=== PATIENT | female | born 1980 | race Caucasian/White ===

== ENCOUNTER 2019-07-23 01:08 | Emergency (ER) | payer OTHER ==
[2019-07-23 01:35] VITALS: BP 124/76; PULSE 75; TEMP 98.5
--- NOTE | 2019-07-23 01:58 | PDOC ---
History of Present Illness - General Chief Complaint: Cold Symptoms Stated Complaint: FLU LIKE SYMPTOMS Time Seen by Provider: 07/23/19 01:58 History Source: Patient Exam Limitations: No Limitations - History of Present Illness Initial Comments: 39-year-old female with past medical history of cardiac murmur, cardiac surgery , asthma at 13 years old presented to the emergency department for body aches, headache, sore throat, productive clear cough, left ear pain, for the last three days and chest pain today. Patient reported that she has not used an albuterol pump or inhaler in a long time, shes never been into baited or hospitalized for her asthma. She reported that her chest tightness today feels similar to when she has an asthma exacerbation. She reported that she feels chest pain when walking and exerting herself. She reported she is concerned she could have the flu. ROS General: admitted to subjective fever, chills, generalized weakness. HEENT: admitted sore throat, ear pain. denied rhinorrhea. Cardiovascular: admitted to chest pain. denied palpitations, syncope, diaphoresis. Respiratory: admitted to shortness of breath, cough, sputum production. denied hemoptysis. Gastrointestinal: denied abdominal pain, nausea, vomiting, diarrhea, constipation, blood in stool. Genitourinary: denied dysuria, increased urinary frequency, hematuria, urinary incontinence, flank pain. Back: denied back pain. Musculoskeletal: denied joint pain, muscle pain, joint swelling. Neurological: admitted to headache. denied dizziness, numbness, tingling, weakness. Integumentary: denied rash, laceration, abrasion. Hematologic/Lymphatic: denied bruising or bleeding. PE Constitutional: Well-nourished, Well-developed, appearing stated age. HEENT: head is normocephalic, atraumatic. EOMI. PERRLA. right TM no erythema or bulging. Left TM bulging. bilateral tonsillar enlargement, no exudates. no posterior pharyngeal erythema. no tonsillar pillar swelling. Neck: supple. Full ROM. Cardiovascular: regular heart rhythm. no murmurs. no pericardial friction rub. Respiratory: clear to auscultation bilaterally. no crackles, rhonchi or wheezing. no stridor. Gastrointestinal: soft, nontender. normal bowel sounds. no rebound, guarding, masses. Extremities: peripheral pulses intact. no lower extremity edema. Neurological: CN 2-12 grossly intact. moves all four extremities. Psych: awake, alert, oriented x3. follows commands. answers questions appropriately. Past History - Past Medical History Allergies/Adverse Reactions: Allergies Allergy/AdvReac Type Severity Reaction Status Date / Time No Known Allergies Allergy Verified 07/23/19 01:34 Home Medications: Ambulatory Orders Acetaminophen [Tylenol] 650 mg PO PRN PRN 07/23/19 Albuterol 0.083% Nebulizer Rosi [Ventolin 0.083% Nebulizer Soln -] 1 neb NEB Q4H PRN #30 vial 07/23/19 Nebulizer Accessories [Adult Aerosol Mask] 1 each MC QID PRN #1 each 07/23/19 Nebulizer [Compact Compressor Nebulizer] 1 each MC QID PRN #1 each 07/23/19 COPD: No - Surgical History Cardiac Surgery: Yes (as a child) - Immunization History Immunization Up to Date: Yes - Psycho Social/Smoking Cessation Hx Smoking History: Never smoked Have you smoked in the past 12 months: No Information on smoking cessation initiated: No Hx Alcohol Use: No Drug/Substance Use Hx: No Substance Use Type: None *Physical Exam - Vital Signs Last Vital Signs Temp Pulse Resp BP Pulse Ox 98.5 F 75 20 124/76 100 07/23/19 01:34 07/23/19 01:34 07/23/19 01:34 07/23/19 01:34 07/23/19 01:34 ED Treatment Course - LABORATORY CBC & Chemistry Diagram: 07/23/19 02:39 07/23/19 02:39 Medical Decision Making - Medical Decision Making 39 year old female with above PMH presented to ED for productive clear cough, body aches, headache, sore throat, left ear pain, chest pain x3 days. Initial Vital Signs Temp Pulse Resp BP Pulse Ox 98.5 F 75 20 124/76 100 07/23/19 01:34 07/23/19 01:34 07/23/19 01:34 07/23/19 01:34 07/23/19 01:34 Afebrile. No tachycardia. No tachypnea. No hypotension. No hypoxia on room air. Labs ordered: influenza, rapid strep, CBC, CMP, troponin Imaging ordered: none Medications ordered: tylenol, duoneb EKG performed at 0259: rate 88, regular rhythm, normal axis, normal intervals, QTc 474, flipped T V3, V4, V5 other [place] no acute ST changes. -No prior to compare 07/23/19 02:44 Pt reported improvement of chest tightness with nebulizer treatment. 07/23/19 03:14 Laboratory Last Values WBC 6.0 K/mm3 (4.0-10.0) 07/23/19 02:39 RBC 4.21 M/mm3 (3.60-5.2) 07/23/19 02:39 Hgb 12.8 GM/dL (10.7-15.3) 07/23/19 02:39 Hct 38.1 % (32.4-45.2) 07/23/19 02:39 MCV 90.5 fl (80-96) 07/23/19 02:39 MCH 30.5 pg (25.7-33.7) 07/23/19 02:39 MCHC 33.6 g/dl (32.0-36.0) 07/23/19 02:39 RDW 13.2 % (11.6-15.6) 07/23/19 02:39 Plt Count 261 K/MM3 (134-434) 07/23/19 02:39 MPV 10.3 fl (7.5-11.1) 07/23/19 02:39 Absolute Neuts (auto) 2.8 K/mm3 (1.5-8.0) 07/23/19 02:39 Neutrophils % 47.0 % (42.8-82.8) 07/23/19 02:39 Lymphocytes % 36.3 % (8-40) 07/23/19 02:39 Monocytes % 14.4 % (3.8-10.2) H 07/23/19 02:39 Eosinophils % 1.5 % (0-4.5) 07/23/19 02:39 Basophils % 0.8 % (0-2.0) 07/23/19 02:39 Nucleated RBC % 0 % (0-0) 07/23/19 02:39 Influenza A (Rapid) Negative (Negative) 07/23/19 02:11 Influenza B (Rapid) Positive (Negative) A 07/23/19 02:11 Group A Strep Rapid Negative (Negative) 07/23/19 02:36 No leuckocytosis. No anemia. Positive for Influenza B. -Sx present for >48 hours, pt is young and healthy, will not give Tamiflu -L TM bulging likely viral, will not give Antibiotics GAS rapid testing negative 07/23/19 03:57 CMP Sodium 138 mmol/L (136-145) 07/23/19 02:39 Potassium 3.8 mmol/L (3.5-5.1) 07/23/19 02:39 Chloride 106 mmol/L (98-107) 07/23/19 02:39 Carbon Dioxide 21 mmol/L (21-32) 07/23/19 02:39 Anion Gap 10 MMOL/L (8-16) 07/23/19 02:39 BUN 13.8 mg/dL (7-18) 07/23/19 02:39 Creatinine 0.8 mg/dL (0.55-1.3) 07/23/19 02:39 Est GFR (CKD-EPI)AfAm 108.39 07/23/19 02:39 Est GFR (CKD-EPI)NonAf 93.52 07/23/19 02:39 Random Glucose 147 mg/dL (74-106) H 07/23/19 02:39 Calcium 8.2 mg/dL (8.5-10.1) L 07/23/19 02:39 Total Bilirubin 0.2 mg/dL (0.2-1) 07/23/19 02:39 AST 66 U/L (15-37) H 07/23/19 02:39 ALT 93 U/L (13-61) H 07/23/19 02:39 Alkaline Phosphatase 101 U/L (45-117) 07/23/19 02:39 Troponin I < 0.02 ng/ml (0.00-0.05) 07/23/19 02:39 Total Protein 7.7 g/dl (6.4-8.2) 07/23/19 02:39 Albumin 3.5 g/dl (3.4-5.0) 07/23/19 02:39 Mild transaminitis. Pt made aware and advised to F/U with GI. Abdomen soft and nontender. CXR my and Dr. Marroquin's view: sharp costophrenic angles. no infiltrate. no cardiomegaly. -Pending official report Pt reported improvement of symptoms. Will discharge with prescription for albuterol nebulizer solution, nebulizer, mask; pt given supportive treatment education. 07/23/19 18:51 Follow up: Official CXR report: Name: [facility] DEPARTMENT OF RADIOLOGY Phys : Fara Marroquin MD : [id number] Age: 39 Sex: F [facility] Acct : [id number] Loc: [address] Exam Date: 07/23/19 Status: [place] [id number] Unit Number: [id number] EXAM#: TYPE/EXAM: RESULT: [id number] RAD/CHEST PA LAT Chest: Cough. There are no prior studies for comparison. There are clear lungs, normal mediastinum and sharp angles. The soft tissues are excessive. The bones are intact. Impression: Excessive soft tissues. No acute chest pathology. Reported By: Jay Priec MD 07/23/19 0730 Discharge - Discharge Information Problems reviewed: Yes Clinical Impression/Diagnosis: Influenza B, Elevated liver enzymes Condition: Improved Disposition: HOME - Admission No - Additional Discharge Information Prescriptions: Albuterol 0.083% Nebulizer Rosi [Ventolin 0.083% Nebulizer Soln -] 1 neb NEB Q4H PRN #30 vial PRN Reason: Asthma Nebulizer [Compact Compressor Nebulizer] 1 each MC QID PRN #1 each PRN Reason: Asthma Nebulizer Accessories [Adult Aerosol Mask] 1 each MC QID PRN #1 each PRN Reason: Asthma - Follow up/Referral Referrals: Mohan Thomas MD [Staff Physician] - Rao Gilbert DO [Staff Physician] - - Patient Discharge Instructions Patient Printed Discharge Instructions: DI for Influenza -- Adult, Liver Function Tests Additional Instructions: Your liver enzymes were slightly elevated, please follow up on this finding with your primary care doctor and have the lab work repeated within 7 days. If the lab values are still high then please follow up with a superintendent drivers, I have provided you with a couple of referrals. Take Tylenol over the counter throughout the day for fever/headache. Take as advised on label. Take Ibuprofen over the counter throughout the day for body aches. Take as advised on label. I have sent a prescription to your pharmacy for albuterol nebulizer solution and a nebulizer machine. Use every 4-6 hours as needed for chest tightness/ shortness of breath. Follow up with your primary care doctor within 3 days regarding your Emergency Room visit. Your care is not complete until you follow up. Drink lots of pedialyte/gatorade to stay hydrated. Get lots of sleep over the next few days. Return to the Emergency Department for increasing pain, chest pain, shortness of breath, vomiting, fever>103F despite Tylenol use, fever>5 days, weakness, numbness, tingling or any other new, worsening or concerning symptoms. - Post Discharge Activity Work/Back to School Note: Back to Work
--- NOTE | 2019-07-23 02:01 | PDOC ---
Attending Attestation - Resident Resident Name: Jeanne Bliss - ED Attending Attestation I have performed the following: I have examined & evaluated the patient, The case was reviewed & discussed with the resident, I agree w/resident's findings & plan - HPI HPI: 07/23/19 03:03 Pt comes with cough aches, sore throat and left ear pain. She has chest pain that is exertional. She has no known ill contacts. - Physicial Exam PE: 07/23/19 03:05 Heart lungs clear Abd soft NT ND No flank pain Ext no edema HEENT: left ear TM minimally bulging throat erythematous - Medical Decision Making 07/23/19 02:57 Strep negative 07/23/19 03:06 Flu B Positive Pt will get CXR as she has chest pain EKG shows lateral nonspecific T changes 07/23/19 04:03 Stable for discharge 07/23/19 04:05 Pt given a copy of her blood tests and she was asked to follow with her PMD and with GI 07/23/19 04:13 Stable for discharge at this time
[2019-07-23] MEDS ORDERED: ACETAMINOPHEN 325 MG TABLET (FP) PO ONE (02:30)
[2019-07-23] MEDS ORDERED: ALBUTEROL SO4 2.5/IPRATROPIUM 0.5 INH SOL 3 ML VIAL.NEB. NEB ONE ×2 (02:30→02:32)
[2019-07-23] MEDS ORDERED: ACETAMINOPHEN 325 MG TABLET (FP) ONE (02:32)
[2019-07-23 03:02] LABS: BASO % 0.8 % (0-2.0); EOS % 1.5 % (0-4.5); HEMATOCRIT 38.1 % (32.4-45.2); HEMOGLOBIN 12.8 GM/dL (10.7-15.3); LYMPH % 36.3 % (8-40); MCH 30.5 pg (25.7-33.7); MCHC 33.6 g/dl (32.0-36.0); MEAN CELL VOLUME 90.5 fl (80-96); MEAN PLT VOLUME 10.3 fl (7.5-11.1); MONO % 14.4 % (3.8-10.2); PLATELET COUNT 261 K/MM3 (134-434); RBC 4.21 M/mm3 (3.60-5.2); RDW 13.2 % (11.6-15.6)
[2019-07-23 03:53] LABS: ALBUMIN 3.5 g/dl (3.4-5.0); BILIRUBIN,TOTAL 0.2 mg/dL (0.2-1); BLOOD UREA NITROGEN 13.8 mg/dL (7-18); CALCIUM 8.2 mg/dL (8.5-10.1); CREATININE 0.8 mg/dL (0.55-1.3); POTASSIUM 3.8 mmol/L (3.5-5.1); TOT PROT 7.7 g/dl (6.4-8.2)
--- NOTE | 2019-07-23 17:53 | EKG ---
Test Reason : Blood Pressure : / mmHG Vent. Rate : 088 BPM Atrial Rate : 088 BPM P-R Int : 128 ms QRS Dur : 090 ms QT Int : 392 ms P-R-T Axes : 048 018 040 degrees QTc Int : 474 ms NORMAL SINUS RHYTHM POSSIBLE LEFT ATRIAL ENLARGEMENT LEFT VENTRICULAR HYPERTROPHY NONSPECIFIC T WAVE ABNORMALITY ABNORMAL ECG NO PREVIOUS ECGS AVAILABLE Confirmed by RAMIREZ PRATT MD ([id number]) on 07/23/2019 5:53:08 PM Referred By: Confirmed By:RAMIREZ PRATT MD
== END 2019-07-23 04:12 | disposition home or self-care (01) ==
LOC: JER 01:08
PROC: 3E0F7GC Introduction of Other Therapeutic Substance into Respiratory Tract, Via Natural or Artificial Opening (ICD-10-PCS; principal; 2019-07-23)
DX: J10.1 Influenza due to other identified influenza virus with other respiratory manifestations (principal); H93.8X2 Other specified disorders of left ear
CPT/HCPCS: 36415; 71046-TC-FY; 80053; 84484; 85025; 87070; 87804; 87880; 93005; 93010; 99283-25

== ENCOUNTER 2019-07-23 22:27 | Emergency (ER) | payer OTHER ==
[2019-07-23 22:45] VITALS: BMI 29.8
--- NOTE | 2019-07-23 23:56 | PDOC ---
History of Present Illness - General History Source: Patient Exam Limitations: No Limitations - History of Present Illness Initial Comments: 39-year-old female with past medical history of cardiac murmur, cardiac surgery as a child presented to the emergency department after being seen yesterday and been diagnosed with influenza B. She reported the pharmacy that she chose to have a prescription sent to was not open all day today so she was not able to access her prescriptions for her albuterol nebulizer solution, nebulizer and accessories. She reported she did not take any Motrin ibuprofen throughout the day. She reported she last took two pills of Tylenol two hours ago. She reported her primary compliant is her diffuse body aches, chest tightness and wheezing. She reported she has developed nausea bombing as well now. I saw the patietn yesterday in the Emergency Department and advised pt to take Motrin for her body aches, which she has not done. ROS General: admitted to body aches, fever, chills, generalized weakness. HEENT: denied sore throat, rhinorrhea, ear pain. Cardiovascular: admitted to chest pain, chest tightness. denied palpitations, syncope, diaphoresis. Respiratory: admitted to shortness of breath, cough. denied sputum production, hemoptysis. Gastrointestinal: admitted to nausea, vomiting. denied abdominal pain, diarrhea , constipation, blood in stool. Genitourinary: denied dysuria, increased urinary frequency, hematuria, urinary incontinence, flank pain. Back: denied back pain. Musculoskeletal: denied joint pain, muscle pain, joint swelling. Neurological: denied headache, dizziness, numbness, tingling, weakness. Integumentary: denied rash, laceration, abrasion. Hematologic/Lymphatic: denied bruising or bleeding. PE Constitutional: Well-nourished, Well-developed, appearing stated age. HEENT: head is normocephalic, atraumatic. EOMI. PERRLA. Left TM bulging. Right TM normal. Exudate on left tonsil. Bilateral tonsillar enlargement. Neck: supple. Full ROM. Cardiovascular: tachycardic. regular heart rhythm. no murmurs. no pericardial friction rub. Respiratory: clear to auscultation bilaterally. no stridor. speaking full sentences. Gastrointestinal: soft, nontender. normal bowel sounds. no rebound, guarding, masses. Extremities: peripheral pulses intact. no lower extremity edema. Neurological: CN 2-12 grossly intact. moves all four extremities. Psych: awake, alert, oriented x3. follows commands. answers questions appropriately. <IzaiahJeanne - Last Filed: 07/24/19 01:30> <Fara Marroquin - Last Filed: 07/24/19 01:54> - General Chief Complaint: Cold Symptoms Stated Complaint: FEVER Time Seen by Provider: 07/23/19 23:56 Past History - Surgical History Cardiac Surgery: Yes (as a child) - Immunization History Immunization Up to Date: Yes - Psycho Social/Smoking Cessation Hx Smoking History: Never smoked Have you smoked in the past 12 months: No Hx Alcohol Use: No Drug/Substance Use Hx: No Substance Use Type: None <Jeanne Bliss - Last Filed: 07/24/19 01:30> <Fara Marroquin - Last Filed: 07/24/19 01:54> - Past Medical History Allergies/Adverse Reactions: Allergies Allergy/AdvReac Type Severity Reaction Status Date / Time No Known Allergies Allergy Verified 07/23/19 22:45 Home Medications: Ambulatory Orders Acetaminophen [Tylenol] 650 mg PO PRN PRN 07/23/19 Albuterol 0.083% Nebulizer Rosi [Ventolin 0.083% Nebulizer Soln -] [address] [facility] NEB Q4H PRN #30 vial 07/23/19 Nebulizer Accessories [Adult Aerosol Mask] 1 each QID PRN #1 each 07/23/19 Nebulizer [Compact Compressor Nebulizer] 1 each QID PRN #1 each 07/23/19 Albuterol 0.083% Nebulizer Rosi [Ventolin 0.083% Nebulizer Soln -] 1 neb NEB Q4H PRN #30 vial 07/24/19 Albuterol 0.083% Nebulizer Rosi [Ventolin 0.083% Nebulizer Soln -] 1 neb NEB Q4H PRN #30 vial 07/24/19 Nebulizer Accessories [Adult Aerosol Mask] 1 each QID PRN #1 each 07/24/19 Nebulizer Accessories [Adult Aerosol Mask] 1 each QID PRN #1 each 07/24/19 Nebulizer [Compact Compressor Nebulizer] 1 each QID PRN #1 each 07/24/19 Nebulizer [Compact Compressor Nebulizer] 1 each MC QID PRN #1 each 07/24/19 Ondansetron [Zofran Odt -] 4 mg SL TID #9 od.tablet 07/24/19 Ondansetron [Zofran Odt -] 4 mg SL TID PRN #9 od.tablet 07/24/19 *Physical Exam - Vital Signs Last Vital Signs Temp Pulse Resp BP Pulse Ox 101.9 F H 115 H 21 H 121/76 100 07/23/19 22:41 07/23/19 22:41 07/23/19 22:41 07/23/19 22:41 07/23/19 22:41 <Jeanne Bliss - Last Filed: 07/24/19 01:30> - Vital Signs Last Vital Signs Temp Pulse Resp BP Pulse Ox 99.8 F H 86 16 110/60 98 07/24/19 01:30 07/24/19 01:30 07/24/19 01:30 07/24/19 01:30 07/24/19 01:30 <Fara Marroquin - Last Filed: 07/24/19 01:54> Vital Signs - Vital Signs #1 Time: 01:25 Blood Pressure: 110/60 BP Location: Right Arm Pulse Rate: 86 Respiratory Rate: 16 Temperature: 99.8 F Temperature Source: Oral O2 Sat by Pulse Oximetry (%): 98 Oxygen Delivery Method: Room Air <Jeanne Bliss - Last Filed: 07/24/19 01:30> ED Treatment Course - LABORATORY CBC & Chemistry Diagram: 07/24/19 00:30 07/24/19 00:30 <Jeanne Bliss - Last Filed: 07/24/19 01:30> - LABORATORY CBC & Chemistry Diagram: 07/24/19 00:30 07/24/19 00:30 - ADDITIONAL ORDERS Additional order review: Laboratory Results 07/24/19 00:30 Sodium 136 Potassium 4.0 Chloride 102 Carbon Dioxide 25 Anion Gap 9 BUN 10.3 Creatinine 0.9 Est GFR (CKD-EPI)AfAm 94.01 Est GFR (CKD-EPI)NonAf 81.11 Random Glucose 115 H Calcium 8.9 Total Bilirubin 0.3 AST 65 H ALT 96 H Alkaline Phosphatase 103 Total Protein 8.5 H Albumin 3.9 07/24/19 00:30 RBC 4.73 MCV 89.7 MCHC 33.4 RDW 13.3 MPV 9.7 Neutrophils % 72.4 D Lymphocytes % 17.2 D Monocytes % 9.5 Eosinophils % 0.2 D Basophils % 0.7 - Medications Given in the ED: ED Medications Discontinued Medications Generic Name Dose Route Start Last Admin Trade Name Aleida PRN Reason Stop Dose Admin Acetaminophen 1,000 mg 07/24/19 01:31 07/24/19 01:42 Ofirmev Injection - IVPB 07/24/19 01:32 1,000 mg ONCE ONE Administration Albuterol/Ipratropium 1 amp 07/24/19 00:06 07/24/19 00:45 Duoneb - NEB 07/24/19 00:07 1 amp ONCE ONE Administration Ibuprofen 600 mg 07/24/19 00:06 07/24/19 00:34 Motrin - PO 07/24/19 00:07 600 mg ONCE ONE Administration Ondansetron HCl 4 mg 07/24/19 00:09 07/24/19 00:34 Zofran Odt - SL 07/24/19 00:10 4 mg ONCE ONE Administration Sodium Chloride 1,000 ml 07/24/19 00:16 07/24/19 00:34 Normal Saline - IV 07/24/19 00:17 1,000 ml ONCE ONE Administration <Fara Marroquin - Last Filed: 07/24/19 01:54> Medical Decision Making - Medical Decision Making 39 year old female with above PMH presented to ED after testing Influenza B+ yesterday for body aches, chest tightness, nausea, vomiting. Initial Vital Signs Temp Pulse Resp BP Pulse Ox 101.9 F H 115 H 21 H 121/76 100 07/23/19 22:41 07/23/19 22:41 07/23/19 22:41 07/23/19 22:41 07/23/19 22:41 Febrile. Tachycardic. Tachypneic. No hypotension. No hypoxia on room air. Labs ordered: CBC, CMP, throat culture Imaging ordered: none Medications ordered: zofran 4 mg SL once, motrin 600 mg PO once, duoneb x1, normal saline bolus 1000 cc once 07/24/19 01:22 Laboratory Last Values WBC 7.8 K/mm3 (4.0-10.0) 12/23/19 00:30 RBC 4.73 M/mm3 (3.60-5.2) 07/24/19 00:30 Hgb 14.2 GM/dL (10.7-15.3) 07/24/19 00:30 Hct 42.4 % (32.4-45.2) 07/24/19 00:30 MCV 89.7 fl (80-96) 07/24/19 00:30 MCH 30.0 pg (25.7-33.7) 07/24/19 00:30 MCHC 33.4 g/dl (32.0-36.0) 07/24/19 00:30 RDW 13.3 % (11.6-15.6) 07/24/19 00:30 Plt Count 272 K/MM3 (134-434) 07/24/19 00:30 MPV 9.7 fl (7.5-11.1) 07/24/19 00:30 Absolute Neuts (auto) 5.7 K/mm3 (1.5-8.0) 07/24/19 00:30 Neutrophils % 72.4 % (42.8-82.8) D 07/24/19 00:30 Lymphocytes % 17.2 % (8-40) D 07/24/19 00:30 Monocytes % 9.5 % (3.8-10.2) 07/24/19 00:30 Eosinophils % 0.2 % (0-4.5) D 07/24/19 00:30 Basophils % 0.7 % (0-2.0) 07/24/19 00:30 Nucleated RBC % 0 % (0-0) 07/24/19 00:30 Sodium 136 mmol/L (136-145) 07/24/19 00:30 Potassium 4.0 mmol/L (3.5-5.1) 07/24/19 00:30 Chloride 102 mmol/L (98-107) 07/24/19 00:30 Carbon Dioxide 25 mmol/L (21-32) 07/24/19 00:30 Anion Gap 9 MMOL/L (8-16) 07/24/19 00:30 BUN 10.3 mg/dL (7-18) 07/24/19 00:30 Creatinine 0.9 mg/dL (0.55-1.3) 07/24/19 00:30 Est GFR (CKD-EPI)AfAm 94.01 07/24/19 00:30 Est GFR (CKD-EPI)NonAf 81.11 07/24/19 00:30 Random Glucose 115 mg/dL (74-106) H 07/24/19 00:30 Calcium 8.9 mg/dL (8.5-10.1) 07/24/19 00:30 Total Bilirubin 0.3 mg/dL (0.2-1) 07/24/19 00:30 AST 65 U/L (15-37) H 07/24/19 00:30 ALT 96 U/L (13-61) H 07/24/19 00:30 Alkaline Phosphatase 103 U/L (45-117) 07/24/19 00:30 Total Protein 8.5 g/dl (6.4-8.2) H 07/24/19 00:30 Albumin 3.9 g/dl (3.4-5.0) 07/24/19 00:30 07/24/19 01:28 Pt reported much improvement of symptoms with proper symptomatic treatment. Pt re-educated on taking motrin and tylenol together, prescriptions sent to [facility] on [facility] (open 22/02). Vital Signs Temperature 99.8 F H 07/24/19 01:29 Pulse Rate 86 07/24/19 01:29 Respiratory Rate 16 07/24/19 01:29 Blood Pressure 110/60 07/24/19 01:29 O2 Sat by Pulse Oximetry (%) 98 07/24/19 01:29 Fever responding to Motrin. Tachycardia responded to fluid hydration. Pt discharged. <Jeanne Bliss - Last Filed: 07/24/19 01:30> Discharge - Discharge Information Problems reviewed: Yes - Admission No <Jeanne Bliss - Last Filed: 07/24/19 01:30> <Fara Marroquin - Last Filed: 07/24/19 01:54> - Discharge Information Clinical Impression/Diagnosis: Body aches, Nausea & vomiting, Influenza B Condition: Improved Disposition: HOME - Additional Discharge Information Prescriptions: Albuterol 0.083% Nebulizer Rosi [Ventolin 0.083% Nebulizer Soln -] 1 neb NEB Q4H PRN #30 vial PRN Reason: Asthma Albuterol 0.083% Nebulizer Rosi [Ventolin 0.083% Nebulizer Soln -] 1 neb NEB Q4H PRN #30 vial PRN Reason: Asthma Nebulizer [Compact Compressor Nebulizer] 1 each MC QID PRN #1 each PRN Reason: Asthma Nebulizer [Compact Compressor Nebulizer] 1 each MC QID PRN #1 each PRN Reason: Asthma Nebulizer Accessories [Adult Aerosol Mask] 1 each MC QID PRN #1 each PRN Reason: Asthma Nebulizer Accessories [Adult Aerosol Mask] 1 each MC QID PRN #1 each PRN Reason: Asthma Ondansetron [Zofran Odt -] 4 mg SL TID PRN #9 od.tablet PRN Reason: Nausea Ondansetron [Zofran Odt -] 4 mg SL TID #9 od.tablet - Follow up/Referral Referrals: ON STAFF,NOT [Primary Care Provider] - - Patient Discharge Instructions Additional Instructions: Your liver enzymes were slightly elevated, please follow up on this finding with your primary care doctor and have the lab work repeated within 7 days. If the lab values are still high then please follow up with a wind energy systems installer, I have provided you with a couple of referrals. Take Tylenol over the counter throughout the day for fever/headache. Take as advised on label. Take Ibuprofen over the counter throughout the day for body aches. Take as advised on label. I have sent a prescription to your pharmacy for albuterol nebulizer solution and a nebulizer machine. Use every 4-6 hours as needed for chest tightness/ shortness of breath. I have sent a prescription to the pharmacy for Zofran, an anti-nausea medication that will dissolve under the tongue. Take as advised on label. Follow up with your primary care doctor within 3 days regarding your Emergency Room visit. Your care is not complete until you follow up. Drink lots of pedialyte/gatorade to stay hydrated. Get lots of sleep over the next few days. Return to the Emergency Department for increasing pain, chest pain, shortness of breath, vomiting, fever>103F despite Tylenol use, fever>5 days, weakness, numbness, tingling or any other new, worsening or concerning symptoms. Arlene enzimas hepticas estaban ligeramente elevadas, ramo un seguimiento de mandi hallazgo con desai mdico de atencin primaria y repita el anlisis de laboratorio dentro de los 7 dailey. Si los valores de laboratorio siguen siendo altos, por favor ramo un seguimiento con un gastroenterlogo, [place] he proporcionado un par de referencias. [place] Tylenol sin receta mdica nimisha todo el da para la fiebre / dolor de mark. Tmelo lorenzo se indica en la etiqueta. [place] ibuprofeno sin receta mdica nimisha todo el da para shilpi corporales. Tmelo lorenzo se indica en la etiqueta. He enviado latonia receta a desai farmacia para la solucin de nebulizador de albuterol y [place] mquina de nebulizador. Use cada 4-6 horas segn sea necesario para la opresin en el pecho / falta de aliento. Envi latonia receta a la farmacia para Zofran, un medicamento contra las nuseas que se disolver debajo de la lengua. Tmelo lorenzo se indica en la etiqueta. Ramo un seguimiento con desai mdico de atencin primaria dentro de los 3 dailey con respecto a desai visita a la connie de emergencias. Desai atencin no estar completa hasta que realice el seguimiento. Piper mucho pedialyte / gatorade para mantenerse hidratado. Duerma mucho en los prximos dailey. Regrese al Departamento de Emergencia para aumentar el dolor, dolor en el pecho , falta de aliento, vmitos, fiebre> 103F a pesar del uso de Tylenol, fiebre> 5 dailey, debilidad, entumecimiento, hormigueo o cualquier otro sntoma nuevo, que empeore o se relacione. - Post Discharge Activity Work/Back to School Note: Back to Work
--- NOTE | 2019-07-24 00:01 | PDOC ---
Attending Attestation - Resident Resident Name: Percy Blissa - ED Attending Attestation I have performed the following: I have examined & evaluated the patient, The case was reviewed & discussed with the resident, I agree w/resident's findings & plan - HPI HPI: 07/24/19 00:07 Pt returns today. SHe was here yesterday and diagnosed with influenza. She also had a TM that was bulging. She will be treated with augmentin - Physicial Exam PE: 07/24/19 00:08 Agree with resident exam Pt is febrile Heart and lungs clear. Pt has no abd pain She has throat pain and exudate on the left pharynx Pt has normal HEENT Tachycardia - Medical Decision Making 07/24/19 00:08 Pt will be treated with antipyretics and IVF. SHe states that she was unable to eat anything today. She will be treated with abx for a strep throat 07/24/19 01:31 Labs unchanged from yesterday. Pt is feeling better with fluid
[2019-07-24] MEDS ORDERED: IBUPROFEN 600 MG TABLET (FP) PO ONE ×2 (00:06→00:10)
[2019-07-24] MEDS ORDERED: ALBUTEROL SO4 2.5/IPRATROPIUM 0.5 INH SOL 3 ML VIAL.NEB. NEB ONE ×2 (00:06→00:10)
[2019-07-24] MEDS ORDERED: ONDANSETRON *ODT* 4 MG TABLET SL ONE (00:09)
[2019-07-24] MEDS ORDERED: ONDANSETRON *ODT* 4 MG TABLET ONE (00:10)
[2019-07-24] MEDS ORDERED: SODIUM CHLORIDE 0.9% 500 ML INFUS.BAG IV ONE (00:16)
[2019-07-24 00:41] LABS: BASO % 0.7 % (0-2.0); EOS % 0.2 % (0-4.5); HEMATOCRIT 42.4 % (32.4-45.2); HEMOGLOBIN 14.2 GM/dL (10.7-15.3); LYMPH % 17.2 % (8-40); MCHC 33.4 g/dl (32.0-36.0); MEAN CELL VOLUME 89.7 fl (80-96); MEAN PLT VOLUME 9.7 fl (7.5-11.1); MONO % 9.5 % (3.8-10.2); NEUT % 72.4 % (42.8-82.8); PLATELET COUNT 272 K/MM3 (134-434); RBC 4.73 M/mm3 (3.60-5.2); RDW 13.3 % (11.6-15.6); WHITE BLOOD COUNT 7.8 K/mm3 (4.0-10.0)
[2019-07-24 01:14] LABS: ALBUMIN 3.9 g/dl (3.4-5.0); BILIRUBIN,TOTAL 0.3 mg/dL (0.2-1); BLOOD UREA NITROGEN 10.3 mg/dL (7-18); CALCIUM 8.9 mg/dL (8.5-10.1); CREATININE 0.9 mg/dL (0.55-1.3); TOT PROT 8.5 g/dl (6.4-8.2)
[2019-07-24 01:28] VITALS: BP 110/60; PULSE 86; TEMP 99.8
[2019-07-24] MEDS ORDERED: ACETAMINOPHEN 1000 MG/100 ML VIAL (NON FORMULARY) IVPB ONE (01:31)
[2019-07-24] MEDS ORDERED: ACETAMINOPHEN INJECTION 100 ML IVPB ONE (01:35)
== END 2019-07-24 01:56 | disposition home or self-care (01) ==
LOC: JER 22:27
DX: J10.1 Influenza due to other identified influenza virus with other respiratory manifestations (principal)
CPT/HCPCS: 36415; 80053; 85025; 87070; 99283-25; J0131; Q0162

== ENCOUNTER 2020-08-18 21:31 | Emergency (ER) | payer OTHER ==
[2020-08-18 21:46] VITALS: BMI 34.2
[2020-08-18] MEDS ORDERED: ACETAMINOPHEN 325 MG TABLET (FP) PO ONE (22:39)
[2020-08-18] MEDS ORDERED: ACETAMINOPHEN 325 MG TABLET (FP) ONE (22:52)
[2020-08-18 23:02] LABS: BASO % 0.7 % (0-2.0); EOS % 1.4 % (0-4.5); HEMATOCRIT 40.5 % (32.4-45.2); HEMOGLOBIN 13.5 GM/dL (10.7-15.3); LYMPH % 32.9 % (8-40); MCHC 33.3 g/dl (32.0-36.0); MEAN CELL VOLUME 90.2 fl (80-96); MEAN PLT VOLUME 9.9 fl (7.5-11.1); MONO % 7.7 % (3.8-10.2); NEUT % 57.3 % (42.8-82.8); PLATELET COUNT 331 K/MM3 (134-434); RBC 4.49 M/mm3 (3.60-5.2); RDW 13.2 % (11.6-15.6); WHITE BLOOD COUNT 12.2 K/mm3 (4.0-10.0)
[2020-08-18 23:27] LABS: POTASSIUM 3.6 mmol/L (3.5-5.1)
[2020-08-18 23:30] LABS: ALBUMIN 4.2 g/dl (3.4-5.0); BLOOD UREA NITROGEN 10.1 mg/dL (7-18); CALCIUM 9.1 mg/dL (8.5-10.1)
[2020-08-18 23:33] LABS: CREATININE 0.9 mg/dL (0.55-1.3)
[2020-08-18 23:35] LABS: BILIRUBIN,TOTAL 0.3 mg/dL (0.2-1); TOT PROT 8.6 g/dl (6.4-8.2)
[2020-08-19 00:38] LABS: URINE APPEARANCE TURBID; URINE COLOR RED
[2020-08-19 00:39] LABS: URINE BILIRUBIN SMALL (NEGATIVE); URINE GLUCOSE (UA) NEGATIVE (NEGATIVE); URINE KETONE NEGATIVE (NEGATIVE); URINE NITRITE POSITIVE (NEGATIVE); URINE PROTEIN 100 (NEGATIVE)
[2020-08-19 00:40] LABS: HYALINE CASTS 44.45 /uL (0-3.1); URINE LEUK ESTERASE 2+ (NEGATIVE); URINE RBC 40847 /uL (0-23.9); URINE WBC 71.9 /uL (0-25.8)
[2020-08-19 00:41] LABS: URINE BACTERIA 31.5 /uL (0-1359)
[2020-08-19] MEDS ORDERED: KETOROLAC TROMETHAMINE 30 MG/1 ML VIAL IVPUSH ONE (02:19)
[2020-08-19] MEDS ORDERED: KETOROLAC TROMETHAMINE 30 MG/1 ML VIAL ONE ×2 (02:58→03:05)
[2020-08-19 04:04] VITALS: BP 118/76; PULSE 79; TEMP 98.3
== END 2020-08-19 04:04 | disposition home or self-care (01) ==
LOC: JER 21:31
PROC: 3E0333Z Introduction of Anti-inflammatory into Peripheral Vein, Percutaneous Approach (ICD-10-PCS; principal; 2020-08-18)
DX: N93.8 Other specified abnormal uterine and vaginal bleeding (principal); N83.02 Follicular cyst of left ovary
CPT/HCPCS: 36415; 76830-TC; 80053; 81003; 84703; 85025; 87086; 99284-25

== ENCOUNTER 2021-10-21 22:04 | Emergency (ER) | payer OTHER ==
[~2021-10-21 22:04] MED LIST: LIDOCAINE PATCH REMOVAL MC SCH
[2021-10-21 22:19] VITALS: BP 132/86; PULSE 81; TEMP 98.9; BMI 32.4
[2021-10-21] MEDS ORDERED: KETOROLAC TROMETHAMINE 30 MG/1 ML VIAL IM ONE (23:02)
[2021-10-21] MEDS ORDERED: CYCLOBENZAPRINE HCL 10 MG TABLET (FP) PO ONE (23:03)
[2021-10-21] MEDS ORDERED: LIDOCAINE 5% TOPICAL PATCH TP ONE (23:03)
[2021-10-21] MEDS ORDERED: CYCLOBENZAPRINE HCL 10 MG TABLET (FP) ONE (23:07)
[2021-10-21] MEDS ORDERED: KETOROLAC TROMETHAMINE 30 MG/1 ML VIAL ONE (23:07)
[2021-10-21] MEDS ORDERED: LIDOCAINE 5% TOPICAL PATCH ONE (23:07)
== END 2021-10-22 00:14 | disposition home or self-care (01) ==
LOC: JER 22:04
PROC: 3E0233Z Introduction of Anti-inflammatory into Muscle, Percutaneous Approach (ICD-10-PCS; principal; 2021-10-21)
DX: S39.012A Strain of muscle, fascia and tendon of lower back, initial encounter (principal); M54.50 Low back pain, unspecified; X50.0XXA Overexertion from strenuous movement or load, initial encounter
CPT/HCPCS: 99284-25

== ENCOUNTER 2022-03-06 15:29 | Emergency (ER) | payer OTHER ==
[2022-03-06 15:35] VITALS: TEMP 97.8; BMI 36.2
[2022-03-06] MEDS ORDERED: FAMOTIDINE 10 MG TABLET PO ONE (17:09)
[2022-03-06] MEDS ORDERED: FAMOTIDINE 20 MG TABLET ONE (17:11)
[2022-03-06 17:58] LABS: BASO % 0.6 % (0-2.0); EOS % 0.8 % (0-4.5); HEMATOCRIT 38.9 % (32.4-45.2); HEMOGLOBIN 13.2 GM/dL (10.7-15.3); LYMPH % 23.4 % (8-40); MCH 29.9 pg (25.7-33.7); MEAN PLT VOLUME 9.4 fl (7.5-11.1); MONO % 6.2 % (3.8-10.2); PLATELET COUNT 302 10^3/uL (134-434); RBC 4.42 M/mm3 (3.60-5.2); RDW 13.2 % (11.6-15.6)
[2022-03-06 18:19] LABS: CALCIUM 9.1 mg/dL (8.5-10.1)
[2022-03-06 18:20] LABS: ALBUMIN 3.8 g/dl (3.4-5.0); BLOOD UREA NITROGEN 10.3 mg/dL (7-18)
[2022-03-06 18:23] LABS: CREATININE 0.7 mg/dL (0.55-1.3)
[2022-03-06 18:25] LABS: BILIRUBIN,TOTAL 0.4 mg/dL (0.2-1); TOT PROT 8.1 g/dl (6.4-8.2)
[2022-03-06 18:46] LABS: EPI CELLS 20 /uL (0-25.1); HYALINE CASTS 1 /uL (0-3.1); PH,URINE 5.5 (5.0-8.0); URINE APPEARANCE CLOUDY; URINE BACTERIA 65 /uL (0-1359); URINE BILIRUBIN NEGATIVE (NEGATIVE); URINE COLOR RED; URINE GLUCOSE (UA) NEGATIVE (NEGATIVE); URINE KETONE NEGATIVE (NEGATIVE); URINE LEUK ESTERASE 1+ (NEGATIVE); URINE NITRITE NEGATIVE (NEGATIVE); URINE PROTEIN 2+ (NEGATIVE); URINE RBC 7298 /uL (0-23.9); URINE UROBILINOGEN 0.2 mg/dL (0.2-1.0); URINE WBC 60 /uL (0-25.8)
[2022-03-06 19:09] LABS: ACTIVATED PTT 31.6 SECONDS (25.2-36.5); PROTHROMBIN TIME (PATIENT) 11.5 SEC (9.7-13.0)
[2022-03-06] MEDS ORDERED: morphine CARPU-JECT 4 MG/1 ML DISP.SYRIN IVPUSH ONE (19:45)
[2022-03-06] MEDS ORDERED: morphine SULFATE 4 MG/ML VIAL ONE (19:54)
[2022-03-06] MEDS ORDERED: IBUPROFEN 600 MG TABLET (FP) PO ONE ×2 (22:58→23:16)
[2022-03-06 23:43] VITALS: BP 130/69; PULSE 79; RESP 20
== END 2022-03-06 23:44 | disposition home or self-care (01) ==
LOC: JER 15:29
PROC: 3E033NZ Introduction of Analgesics, Hypnotics, Sedatives into Peripheral Vein, Percutaneous Approach (ICD-10-PCS; principal; 2022-03-06)
DX: R10.9 Unspecified abdominal pain (principal)
CPT/HCPCS: 36415; 74177-TC; 76830-TC; 80053; 80307; 81003; 84703; 85025; 85610; 85730; 86850; 86900; 86901; 87086; 99285-25

== ENCOUNTER 2022-08-31 13:44 | Emergency (ER) | payer OTHER ==
[2022-08-31 14:07] VITALS: BP 129/77; PULSE 73; RESP 17; TEMP 98.1; BMI 32.6
== END 2022-08-31 15:09 | disposition home or self-care (01) ==
LOC: JERFT 13:44 → JER 13:44 → JERFT 15:09
DX: S09.90XA Unspecified injury of head, initial encounter (principal); W20.8XXA Other cause of strike by thrown, projected or falling object, initial encounter
CPT/HCPCS: 99283-25

== ENCOUNTER 2023-07-10 10:21 | Emergency (ER) | payer OTHER ==
[2023-07-10 10:30] VITALS: BP 130/78; PULSE 78; RESP 20; TEMP 97.6; BMI 30.6
== END 2023-07-10 12:48 | disposition home or self-care (01) ==
LOC: JERFT 10:21
DX: J06.9 Acute upper respiratory infection, unspecified (principal); J31.0 Chronic rhinitis; B34.9 Viral infection, unspecified; R09.81 Nasal congestion; R07.0 Pain in throat; R51.9 Headache, unspecified; R68.83 Chills (without fever); R09.89 Other specified symptoms and signs involving the circulatory and respiratory systems; M79.10 Myalgia, unspecified site; R07.89 Other chest pain; Z20.822 Contact with and (suspected) exposure to COVID-19
CPT/HCPCS: 0241U-QW; 93005; 93010; 99283-25